=== PATIENT | male | born 1970 | race Caucasian/White ===

== ENCOUNTER 2018-05-11 20:16 | Observation (INO) | payer OTHER ==
[~2018-05-11] VITALS: Ht 175.3 cm; Wt 109.1 kg
[2018-05-11 23:21] VITALS: BP 170/116
--- NOTE | 2018-05-11 23:23 | NUR ---
DR. KAN NOTIFIED OF PATIENTS BLOOD PRESSURE, HE WILL PUT IN ORDERS FOR MED/SURG. IV SITED TO LEFT WRIST, 20G X 2 STICKS. PATIENT STATES THAT HE HAS A RARE BLOOD DISEASE TTP, DR. KAN NOTIFIED.
[2018-05-11 23:50] LABS: HEMOGLOBIN 13.6 g/dL (13.5-17.5); LYMPHOCYTES 17.9 % (15-50); MCH 32.1 pg (26.0-34.0); MCHC 35.8 g/dL (31.0-37.0); MCV 89.6 fL (80.0-100.0); NEUTROPHILS 74.4 % (40-80); PLATELET COUNT 251 10x3/uL (130-400); RBC 4.24 10x6/uL (4.20-6.10); RDW 12.6 % (11.5-14.5); WBC 9.3 10x3/uL (4.8-10.8)
--- NOTE | 2018-05-11 23:55 | NUR ---
RECEIVED PT FROM ER VIA W/C. STATES HIS NOSE STARTED BLEEDING AROUND 6PM. DENIES ANY MEDICAL PROBLEMS AND IS NOT ON ANY HOME MEDS. STATES HE HAS A HX OF ITP. ALERT AND ORIENTED X4. TALKATIVE WITH STAFF. DENIES PAIN. NASAL TAMPON NOTED TO RT NARE WHICH IS STILL DRIPPING SMALL AMT OF BLOOD. SALINE LOCK NOTED TO LT WRIST. RESP EVEN AND NONLABORED. BBS CTA. NO EDEMA NOTED. AMBULATORY. TELEMETRY SHOWS ST WITH RATE OF 101. SR ELEVATED X2. CL IN REACH.
[2018-05-12 00:11] LABS: APTT 28.8 SECONDS (22.8-39.4)
[2018-05-12 00:17] LABS: INR 0.98 (0.85-1.17); PROTIME 12.5 SECONDS (11.6-15.0)
[2018-05-12 00:27] VITALS: BP 147/97; BMI 35.5
[2018-05-12 00:31] LABS: ALBUMIN 3.5 g/dL (3.4-5.0); ALKALINE PHOSPHATASE 74 U/L (46-116); ALT (SGPT) 64 U/L (10-68); BILIRUBIN - TOTAL 0.44 mg/dL (0.2-1.3); CALC OSMOLALITY 282 mosm/kg (275-300); CALCIUM 8.3 mg/dL (8.5-10.1); CARBON DIOXIDE 22.2 mmol/L (21.0-32.0); CHLORIDE - SERUM 104 mmol/L (98-107); CREATININE - SERUM 0.9 mg/dL (0.6-1.3); GLUCOSE 112 mg/dL (74-106); POTASSIUM - SERUM 3.8 mmol/L (3.5-5.1); PROTEIN - SERUM 6.8 g/dL (6.4-8.2); SODIUM 139 mmol/L (136-145); UREA NITROGEN 25 mg/dL (7-18); eGFR NON AFRICAN AMERICAN > 90 mL/min (90-120)
[2018-05-12 05:12] VITALS: BP 168/98
--- NOTE | 2018-05-12 05:53 | NUR ---
HAS RESTED WELL TONIGHT. BLEEDING CONTROLLED PER NASAL DEVICE. NO DISTRESS. CL IN REACH.
[2018-05-12 08:27] VITALS: BP 175/105
--- NOTE | 2018-05-12 09:54 | NUR ---
CALLED AND SPOKE WITH ALEJANDRA IN THE PHARMACY REQUESTING THE IV BLOOD PRESSURE MEDICATION, REQUESTED 2 DOSES
[2018-05-12 11:16] VITALS: BP 158/106
[2018-05-12 14:18] VITALS: Ht 175.3 cm; Wt 109.1 kg
[2018-05-12] MEDS ORDERED: LISINOPRIL-HCT1 EAC7 PO (14:19)
== END 2018-05-12 16:41 | disposition home or self-care (01) ==
LOC: D.ER 20:16 → D.M3 22:21 → OBSVTIME 22:21 → D.M3 05-12 16:41
PROVIDERS: Family Medicine; ADMIT Family Medicine
DX: R04.0 Epistaxis (principal)